=== PATIENT | male | born 1990 | race Two or more races ===

== ENCOUNTER 2020-09-14 23:54 | Emergency (ER) | payer OTHER ==
[~2020-09-14] VITALS: Ht 177.8 cm; Wt 95.3 kg
[2020-09-15] MEDS ORDERED: CEFADROXIL500 MG PO (00:59)
== END 2020-09-15 03:12 | disposition home or self-care (01) ==
LOC: ER 23:54
DX: H65.92 Unspecified nonsuppurative otitis media, left ear (principal)

== ENCOUNTER 2023-04-30 16:53 | Emergency (ER) | payer OTHER ==
[~2023-04-30] VITALS: Ht 175.3 cm; Wt 104.3 kg
[~2023-04-30 16:53] MED LIST: CEFADROXIL500 MG PO
[2023-04-30 18:28] LABS: PH,URINE 6.5 (5.0-8.0); URINE APPEARANCE Clear; URINE BILIRRUBIN Negative (NEGATIVE); URINE BLOOD Negative; URINE COLOR Yellow; URINE GLUCOSE Negative (NEGATIVE); URINE LEUKOCYTE Negative; URINE NITRATE Negative; URINE PROTEIN Negative (NEGATIVE)
[2023-04-30 18:29] LABS: URINE WBC 1.8 uL (0.0-23.2)
[2023-04-30 18:32] LABS: HEMATOCRIT 49.3 % (39.0-48.0); HEMOGLOBIN 16.8 g/dL (13-16.00); MEAN CELL VOLUME 88.1 fL (80.0-100.00); MEAN CORPUSCULAR HEMOGLOBIN 30.1 pg (27.00-32.0); MEAN CORPUSCULAR HGB CONC 34.2 g/dl (32.0-36.0); PLATELET COUNT 179 K/uL (150-450); RED CELL DISTRIBUTION WIDTH 14.1 % (11.5-14.5)
[2023-04-30 18:40] LABS: URINE BACTERIA 2.5 uL (0.0-1933); URINE EPITHELIAL CELLS 0.3 uL (0.0-38.8); URINE RBC 1.1 uL (0.0-20.8)
[2023-04-30 18:45] LABS: CALCIUM 9.8 mg/dL (8.5-10.1); CREATININE SERUM 1.11 mg/dL (0.70-1.30); GFR 77.27; POTASSIUM 4.33 mEq/L (3.5-5.1)
== END 2023-04-30 21:27 | disposition home or self-care (01) ==
LOC: ER 16:54
PROVIDERS: Emergency Medicine
DX: A60.00 Herpesviral infection of urogenital system, unspecified (principal)